=== PATIENT | female | born 1990 | race Caucasian/White ===

== ENCOUNTER 2017-07-15 07:43 | Day surgery (SDC) | payer OTHER ==
[2017-07-09 15:32] VITALS: BMI 43.4
[~2017-07-15 07:43] MED LIST: DEXAMETHASONE SOD PHOSPHATE 10 MG/ML 1 ML VIAL IV ONE; HEPARIN SODIUM,PORCINE 5,000 UNIT/ML 1 ML VIAL SQ ONE; HYDROmorphone 1 MG/ML 1 ML SYRINGE IVP PRN; LACTATED RINGERS 1,000 ML IV SCH; ceFAZolin 2 GM in SODIUM CHLORIDE 0.9% 100 ML IVPB ONE
[2017-07-15 08:32] LABS: Glucose,Whole Blood 95 mg/dL (75-99)
[2017-07-15] MEDS ORDERED: LIDOCAINE 1% 20 ML VIAL (10MG/ML) FOR IV START SQ ONE (08:50)
[2017-07-15] MEDS: ONDANSETRON 4 MG/2 ML VIAL IVP ONE ×2 (09:17→10:53)
--- NOTE | 2017-07-15 09:21 | P.GSHP ---
History of Present Illness H&P Date: 07/15/17 Chief Complaint: Right upper quadrant pain Is a 26-year-old female referred from Dr. Vijaya neville. Patient had complaints of abdominal pain. She is workup found have evidence of gallstones. She presents today for laparoscopic cholecystectomy. Past Medical History Past Medical History: No Reported History History of Any Multi-Drug Resistant Organisms: None Reported Additional Past Surgical History / Comment(s): wisdom teeth Past Anesthesia/Blood Transfusion Reactions: No Reported Reaction Past Psychological History: No Psychological Hx Reported Smoking Status: Never smoker Past Alcohol Use History: Occasional Past Drug Use History: None Reported - Past Family History Mother Family Medical History: Cancer Additional Family Medical History / Comment(s): skin CA Medications and Allergies Home Medications Medication Instructions Recorded Confirmed Type Albuterol Inhaler [Ventolin Hfa 1 - 2 puff INHALATION Q6HR PRN 07/09/17 History Inhaler] Vienva 1 tab PO DAILY 07/09/17 07/15/17 History Allergies Allergy/AdvReac Type Severity Reaction Status Date / Time No Known Allergies Allergy Verified 07/09/17 15:18 Surgical - Exam Vital Signs Temp Pulse Resp BP Pulse Ox 97.7 F 82 18 117/72 99 07/15/17 08:21 07/15/17 08:21 07/15/17 08:21 07/15/17 08:21 07/15/17 08:21 - General well developed, no distress - Eyes PERRL - ENT normal pinna - Neck no masses - Respiratory normal expansion - Cardiovascular Rhythm: regular - Abdomen Abdomen: soft, non tender Assessment and Plan Plan: Right quadrant pain Lithiasis We'll perform laparoscopic cholecystectomy
[2017-07-15] MEDS ORDERED: BUPIVACAINE-EPI 0.5%-1:200,000 10 ML VIAL SQ ONE (09:31)
[2017-07-15] MEDS ORDERED: PROPOFOL 10 MG/ML 20 ML VIAL IV ONE (09:34)
[2017-07-15] MEDS ORDERED: ROCURONIUM BROMIDE 10 MG/ML 10 ML VIAL IV ONE (09:34)
[2017-07-15] MEDS ORDERED: MIDAZOLAM 2 MG/2 ML VIAL ONE (09:34)
[2017-07-15] MEDS ORDERED: NEOSTIGMINE 1 MG/ML 10 ML VIAL ONE (09:34)
[2017-07-15] MEDS ORDERED: fentaNYL (PF) 50 MCG/ML 2 ML AMP ONE (09:34)
[2017-07-15] MEDS ORDERED: KETOROLAC 30 MG/ML 1 ML VIAL ONE (09:34)
[2017-07-15] MEDS ORDERED: GLYCOPYRROLATE 0.2 MG/ML 2 ML VIAL ONE (09:34)
--- NOTE | 2017-07-15 10:23 | P.OP ---
Date of Procedure: 07/15/17 Preoperative Diagnosis: Cholecystitis Cholelithiasis Postoperative Diagnosis: Cholecystitis Cholelithiasis Procedure(s) Performed: Laparoscopic cholecystectomy Implants: Anesthesia: LUAN Surgeon: Franklyn Sarmiento Estimated Blood Loss (ml): 5 Pathology: other (Gallbladder) Condition: stable Disposition: PACU Indications for Procedure: Operative Findings: Description of Procedure: The patient was placed on the operating table. The patient received a general endotracheal tube anesthesia. The patients abdomen was prepped and draped in the usual sterile fashion. Through an infraumbilical stab incision, the fascia of the anterior abdominal wall was grasped with a pair of Kochers and then the Veress needle was placed in the peritoneal cavity. Position of the Veress needle was confirmed with positive drop test. The abdomen was then insufflated. After adequate insufflation, the 10 mm trocar was placed in the peritoneal cavity. Following this the laparoscope was placed in the peritoneal cavity. The patient was placed in the head-up, right side up position and then a 5 mm trocar was placed in the right lateral and right subcostal position under direct visualization. A 8 mm trocar was placed in the epigastric position. The gallbladder was grasped in the fundus and infundibulum. Traction on the gallbladder was placed in the lateral and the cephalad positions. The triangle of Calot was visualized.. The cystic duct was bluntly dissected until the union of the cystic duct and common bile duct was seen. The cystic duct was then divided and sealed with the Harmonic scissors. A PDS Endoloop was then placed throughout the cystic duct stump. The cystic artery divided and sealed with the Harmonic scissors. The gallbladder was then removed from the liver bed using Harmonic scissors. The gallbladder was then extracted through the epigastric port site. Operative field was checked for any bleeding spots and Harmonic scissors was used to coagulate the liver bed. The abdomen was irrigated. The trocars were removed. The skin was closed using interrupted 3-0 Vicryl suture. Dermabond dressing were applied. The patient tolerated the procedure well.
[2017-07-15 10:47] VITALS: RESP 16
[2017-07-15 10:53] VITALS: TEMP 97.2
[2017-07-15] MEDS ORDERED: diphenhydrAMINE 50 MG/ML 1 ML VIAL IVP ONE (11:00)
[2017-07-15 11:13] LABS: Glucose,Whole Blood 126 mg/dL (75-99)
[2017-07-15] MEDS ORDERED: HYDROcodone/APAP 5-325MG 1 EACH TAB PO ONE (13:29)
[2017-07-15 13:58] VITALS: BP 130/70; PULSE 78
== END 2017-07-15 14:15 | disposition home or self-care (01) ==
LOC: OR 07:43
PROVIDERS: ATTEND Surgery
DX: K80.10 Calculus of gallbladder with chronic cholecystitis without obstruction (principal); J45.909 Unspecified asthma, uncomplicated; Z79.899 Other long term (current) drug therapy
CPT/HCPCS: 81025; 88304; 47562; J2250; J1200; J1644; J1100; J2710; J0690; J2405; J3010; J1885; J2704

== ENCOUNTER → 2020-09-15 | Outpatient (CLI) | payer OTHER ==
--- NOTE | 2020-09-15 20:04 | CONS ---
CONSULTATION DATE OF SERVICE: 09/15/2020 This patient is a 29-year-old lady who has been evaluated in [facility] for snoring and significant excessive daytime sleepiness. HISTORY OF PRESENT ILLNESS/SLEEP-WAKE EVALUATION: Patient's usual sleep schedule is from 1:30 a.m. until 7 or 8 a.m. on working days and from 10 or 11 p.m. to 7 or 8 a.m. on weekends. Usually no problems with falling asleep. No TV in bedroom. The patient usually sleeps on the side position. No history of hypnagogic hallucinations, sleep paralysis or cataplexy. The patient snores and wakes up from sleep with a dry mouth sometimes. No history of nocturia. In the morning the patient wakes up tired, falling asleep during the day. She has episodes of depression. [place] Sleepiness Scale is in extremely high range at 19. PAST MEDICAL HISTORY: Positive for depression, asthma. PAST SURGICAL HISTORY: Cholecystectomy. MEDICATIONS: control pills, escitalopram, albuterol inhaler. SOCIAL HISTORY: Negative for smoking. Alcohol consumption occasional. FAMILY HISTORY: Positive for cancer, hypertension, diabetes. REVIEW OF SYSTEMS: Snoring, daytime sleepiness. PHYSICAL EXAMINATION: GENERAL: A pleasant 29-year-old lady without distress. VITAL SIGNS: BP 135/73, HR 82, RR 16, height 5 feet 4-1/2 inches, weight 244 pounds, BMI 43.9, temperature 98.0, oxygen saturation at room air 100%. HEENT: PERRLA, EOMI. Evaluation of oropharynx showed tongue protrudes midline. Extremely low position of soft palate. Mallampati IV. NECK: Supple. No JVD. Thyroid is not palpable. Neck measures 15-1/2 inches in circumference. LUNGS: Clear to percussion and to auscultation. Good air exchange. No wheezing or rhonchi. HEART: S1, S2 regular. No murmurs, gallops or rubs. ABDOMEN: Obese. EXTREMITIES: No clubbing or cyanosis. HIGH SCHOOL CHEMISTRY TEACHER: Awake, alert, and oriented X3. Cranial nerves 2 to 7 intact. There is no fasciculation or atrophy. noted. No focal deficits observed. IMPRESSION: 1. Snoring, extremely low position of soft palate, daytime sleepiness; possible obstructive sleep apnea-hypopnea syndrome. 2. Significant excessive daytime sleepiness. [place] Sleepiness Scale is 19. Patient takes naps in the middle of the day. Differential diagnosis includes narcolepsy without cataplexy and idiopathic hypersomnia. 3. History of depression. 4. Asthma. 5. Status post cholecystectomy. 6. Obesity. BMI 43.9. PLAN: 1. Polysomnography for evaluation of patient's breathing during sleep. 2. CPAP/BiPAP titration if sleep study confirms obstructive sleep apnea-hypopnea syndrome. 3. Preferable position during sleep on the side. 4. No driving if patient feels any sleepiness. 5. I will see patient for follow up visit to explain results of testing and following plan. 6. If sleep study is negative for obstructive sleep apnea-hypopnea syndrome, we will have to consider multiple sleep latency test for objective evaluation of patient's symptoms of excessive daytime sleepiness. Thank you very much for allowing me to participate in the management of your patient. Sincerely, Erick Magallanes MD, PhD, FAASM Diplomat of [employer] Thermostat Repairer [facility] [place] MMODL / ALVINN: [id number] /
== END | disposition home or self-care (01) ==
LOC: SLEEP 15:02
PROVIDERS: ATTEND Internal Medicine
DX: R06.83 Snoring (principal); J45.909 Unspecified asthma, uncomplicated; E66.9 Obesity, unspecified; Z68.41 Body mass index [BMI] 40.0-44.9, adult; Z86.59 Personal history of other mental and behavioral disorders; Z90.49 Acquired absence of other specified parts of digestive tract; Z79.51 Long term (current) use of inhaled steroids; Z79.899 Other long term (current) drug therapy; Z79.3 Long term (current) use of hormonal contraceptives
CPT/HCPCS: 99211

== ENCOUNTER → 2021-02-02 | Outpatient (CLI) | payer OTHER ==
--- NOTE | 2021-02-02 13:57 | SFUN ---
SLEEP CENTER FOLLOW UP NOTE DATE OF SERVICE: 02/02/2021 A 30-year-old lady has been followed in Sleep Center for treatment of obstructive sleep apnea-hypopnea syndrome and significant excessive daytime sleepiness. Recently the patient had home sleep apnea test and I discussed results of home sleep apnea test with the patient in detail. She was found to have mild obstructive sleep apnea and she was started on treatment with CPAP. Today is her first visit after she was started on treatment with CPAP. She was able to use CPAP equipment, but she still continued to feel significant excessive daytime sleepiness. [place] Sleepiness Scale today is 18. I checked her CPAP unit. Range of the pressure 5-15 with average pressure 11.5, usage is every night and 21out of 30 nights for more than 4 hours. Leak is 41 L/minute which is quite high, but apnea-hypopnea index totally normal 1.7. MEDICATIONS: Albuterol on p.r.n. basis, control pills, escitalopram. PHYSICAL EXAMINATION: GENERAL: Patient in no distress. VITAL SIGNS: BP 119/83, HR 90, RR 16, height 5 feet 3 inches, weight 248.2, BMI 43.9, temperature 98.4, oxygen saturation at room air 99%. HEENT: PERRLA, EOMI. Oropharynx low position of soft palate. Mallampati 4. NECK: Supple, no JVD. Thyroid is not palpable. LUNGS: Clear to percussion and to auscultation. Good air exchange. No wheezing or rhonchi. HEART: S1, S2 regular. No murmurs, gallops, or rubs. ABDOMEN: Obese. EXTREMITIES: No clubbing or cyanosis. OPERATOR COMMAND SUPPORT SYSTEMS: Awake, alert, and oriented X3. Cranial nerves 2 to 7 intact. There is no fasciculation or atrophy. noted. No focal deficits observed. IMPRESSION: 1. Obstructive sleep apnea-hypopnea syndrome in mild range. The patient demonstrated good compliance with treatment, benefitting from treatment on normal respiration on CPAP. 2. The patient continues to feel significant excessive daytime sleepiness. [place] Sleepiness Scale continued to stay in very high range of 18. Differential diagnosis includes hypersomnia and narcolepsy. 3. Obesity. 4. Asthma. 5. History of depression. 6. Status post cholecystectomy. PLAN: 1. Polysomnogram on treatment with CPAP, average pressure according to auto PAP 11.5 with the following multiple sleep latency test for objective evaluation patient has symptoms of excessive daytime sleepiness. 2. Losing weight. 3. Sleep hygiene with regular time in bed for 7-1/2 to 8 hours. 4. Continue to use CPAP equipment every night. 5. No driving if feeling sleepiness. 6. I will see patient for follow-up visit after we will proceed with MSLT for the following plan and recommendations: Thank you very much for allowing me to participate in management of your patient. Sincerely, Erick Magallanes MD, PhD, FAASM Diplomat of [employer] [employer] Shop Supervisor of [facility] [place] MMODL / IJN: [id number] /
== END | disposition home or self-care (01) ==
LOC: SLEEP 11:57
PROVIDERS: ATTEND Internal Medicine
DX: G47.33 Obstructive sleep apnea (adult) (pediatric) (principal); E66.9 Obesity, unspecified; J45.909 Unspecified asthma, uncomplicated; Z90.49 Acquired absence of other specified parts of digestive tract; Z99.89 Dependence on other enabling machines and devices; Z79.899 Other long term (current) drug therapy; Z86.59 Personal history of other mental and behavioral disorders